=== PATIENT | female | born 1975 | race Two or more races ===

== ENCOUNTER 2022-07-23 23:17 | Emergency (ER) | payer OTHER ==
[~2022-07-23] VITALS: Ht 152.4 cm; Wt 55.8 kg
== END 2022-07-24 02:21 | disposition home or self-care (01) ==
LOC: ER 23:17
DX: S61.012A Laceration without foreign body of left thumb without damage to nail, initial encounter (principal); W45.8XXA Other foreign body or object entering through skin, initial encounter; Y93.89 Activity, other specified; Y92.89 Other specified places as the place of occurrence of the external cause; Y99.9 Unspecified external cause status; Z88.6 Allergy status to analgesic agent

== ENCOUNTER 2022-08-02 17:47 | Emergency (ER) | payer OTHER ==
[~2022-08-02] VITALS: Ht 152.4 cm; Wt 54.4 kg
[2022-08-02] MEDS ORDERED: ZOLOFT25 MG PO (18:04)
== END 2022-08-02 18:46 | disposition home or self-care (01) ==
LOC: ER 17:47
DX: Z48.02 Encounter for removal of sutures (principal)